=== PATIENT | female | born 1995 | race Caucasian/White ===

== ENCOUNTER 2018-10-30 23:41 | Emergency (ER) | payer OTHER ==
[~2018-10-30] VITALS: Ht 152.4 cm; Wt 68.9 kg
[2018-10-31] MEDS ORDERED: PRENATABS FA T1 EACH (00:16)
[2018-10-31] MEDS ORDERED: DUI500 PO (08:20)
== END 2018-10-31 08:50 | disposition home or self-care (01) ==
LOC: ER 23:41
DX: O23.42 Unspecified infection of urinary tract in pregnancy, second trimester (principal); Z34.02 Encounter for supervision of normal first pregnancy, second trimester

== ENCOUNTER 2019-01-28 09:06 | Inpatient (IN) | payer OTHER ==
[~2019-01-28] VITALS: Ht 165.1 cm; Wt 177.0 kg
[~2019-01-28 09:06] MED LIST: DUI500 PO; PRENATABS FA T1 EACH
== END 2019-03-04 13:45 | disposition home or self-care (01) | DRG 807 ==
LOC: OB/GYN 02-08 14:30 → LDR 02-28 19:53 → OB/GYN 02-28 19:53
PROVIDERS: ADMIT Obstetrics & Gynecology
PROC: 3E033VJ Introduction of Other Hormone into Peripheral Vein, Percutaneous Approach (ICD-10-PCS; 2019-02-28)
PROC: 4A1HXCZ Monitoring of Products of Conception, Cardiac Rate, External Approach (ICD-10-PCS; 2019-02-28)
PROC: 10E0XZZ Delivery of Products of Conception, External Approach (ICD-10-PCS; principal; 2019-03-01)
PROC: 0KQM0ZZ Repair Perineum Muscle, Open Approach (ICD-10-PCS; 2019-03-01)
DX: O70.1 Second degree perineal laceration during delivery (principal); Z37.0 Single live birth; Z3A.39 39 weeks gestation of pregnancy